=== PATIENT | female | born 1990 | race Caucasian/White ===

== ENCOUNTER 2021-06-21 20:15 | Outpatient (CLI) | payer OTHER ==
[~2021-06-21 20:15] MED LIST: BUSPIRONE HCL5 MG PO
== END 2021-06-21 23:00 | disposition home or self-care (01) ==
LOC: GENOP 20:15
DX: O47.1 False labor at or after 37 completed weeks of gestation (principal); O99.333 Smoking (tobacco) complicating pregnancy, third trimester; F17.200 Nicotine dependence, unspecified, uncomplicated; Z3A.37 37 weeks gestation of pregnancy
CPT/HCPCS: 81001; G0463